=== PATIENT | male | born 1985 | race Hispanic/Latino ===

== ENCOUNTER → 2018-03-29 | Day surgery (SDC) | payer OTHER ==
[2018-03-28 09:43] LABS: ANION GAP 19.2 mmol/L (8-16); BLOOD UREA NITROGEN 13 mg/dL (7-26); BUN/CREATININE RATIO 16 (6-25); CALCIUM 9.5 mg/dL (8.4-10.2); CARBON DIOXIDE 25 mmol/L (22-29); CHLORIDE 101 mmol/L (98-107); CREATININE, SERUM 0.83 mg/dL (0.72-1.25); EST GLOMERULAR FILTRATION RATE > 60 ML/MIN (60-); GLUCOSE 148 mg/dL (74-118); POTASSIUM 4.2 mmol/L (3.5-5.1); SODIUM 141 mmol/L (136-145)
[~2018-03-29] MED LIST: AMLODIPINE BES2.5 MG PO; ATORVASTATIN CA10 MG PO; BACITRACIN 50,000 UNIT VIAL ONE; DEXAMETHASONE SOD PHOS INJ 4 MG/ML VIAL ONE; FENTANYL CITRATE/PF 100MCG/2 ML INJ ONE; KETOROLAC TROMETHAMINE 30 MG/ML VIAL ONE; LIDOCAINE 2% /EPINEPHRINE 20 ML SDV INJ ONE; LIDOCAINE HCL 2% LOCAL INJ 5 ML SDV VIAL INJ ONE; LOSARTAN POTASS50 MG PO; MIDAZOLAM HCL 2 MG/2 ML VIAL ONE; ONDANSETRON HCL INJ 2 MG/ML VIAL ONE; PAROXETINE HCL20 MG PO; PROPOFOL IV EMULSION 10 MG/ML 20 ML VIAL ONE; ROPIVACAINE 0.5% 5 MG/ML 30 ML SDV ONE; SEVOFLURANE INHAL SOLN 250 ML PEN BTL ONE
[2018-03-29] MEDS: CLINDAMYCIN PHOS 900MG/ 50ML 50 ML IV ONE (09:11)
[2018-03-29] MEDS: LABETALOL HCL 20 ML ONE (09:11)
[2018-03-29] MEDS: FENTANYL CITRATE/PF 100MCG/2 ML INJ ONE (11:24)
[2018-03-29 12:30] VITALS: BP 143/95
--- NOTE | 2018-03-29 16:12 | Operative Report ---
DATE OF PROCEDURE: March 29, 2018 GAS STATION CLERK: Dane Quintanilla PA-C The patient was brought to the operating room for induction of anesthesia. Throughout this case, my PA's assistance was necessary for retraction of soft tissue and positioning of the extremity. This allows for efficient and technically successful execution of the operation and is considered medically necessary. PREOPERATIVE DIAGNOSIS: Left knee anterior cruciate ligament tear. POSTOPERATIVE DIAGNOSIS: Left knee anterior cruciate ligament tear. PROCEDURES: 1. Left knee arthroscopy. 2. Anterior cruciate ligament reconstruction. INDICATIONS: The patient is a 32-year-old gentleman who is about 2 months status post a hyperextension injury to his left knee. Clinic exam and MRI findings are consistent with an anterior cruciate ligament tear. The findings and options have been discussed with the patient. He would like to proceed with surgical reconstruction. The risks and benefits were discussed. He stated he understood and wished to proceed. DESCRIPTION OF PROCEDURE: The patient was brought to the operating room and placed under general anesthetic. He received prophylactic antibiotics and a regional block in the holding area. His left lower extremity was examined under anesthesia. He had an approximate 2+ Sal with a firm stop compared to the right side. He had a mildly positive pivot shift. The left leg was prepped and draped in a sterile manner. Standard arthroscopy portals were established. The knee was insufflated with sterile saline and systematically inspected. The suprapatellar pouch, patellofemoral groove, medial and lateral compartments were all completely normal. There was indeed a remnant of the anterior cruciate ligament. This was lax when probed. It appeared to be detached from the femoral insertion. We elected to proceed with an anterior cruciate ligament reconstruction. An anterior tibialis allograft was prepared on the back table. This was 10 mm in diameter. The remnant of the anterior cruciate ligament was debrided with a combination of biting forceps and a mechanical shaver. Notchplasty was performed. An extraarticular alignment guide was used to place a guide pin into the footprint of the previous ACL. This was over-reamed with a 10 mm reamer. A 5 mm [id number] guide was used to place a femoral guide pin at approximately the 2 o'clock position. This was brought out the anterior soft tissue. This was over-reamed with a 10 mm acorn reamer. The 4.5 mm EndoButton drill was placed. The length of the EndoButton tunnel was 46 mm. We elected to use a 20 mm EndoButton. This was attached to the graft. The graft was passed, and the EndoButton was deployed over the anterior femoral cortex. The knee was cycled a number of times. A bioabsorbable 10 x 25 mm screw was placed into the tibial tunnel. Nice secure fixation was obtained. The knee was examined. The Sal test was negative. The graft was probed under arthroscopic visualization. It was under appropriate tension. The arthroscopic instruments were removed. The incisions were all closed with nylon stitches. A sterile bandage and a [place] brace were applied. The patient was extubated and transported to the recovery room in stable condition. There was no blood loss, and all needle and sponge counts were correct. Job#: [id number]
== END | disposition home or self-care (01) ==
LOC: OR 07:20
PROVIDERS: ATTEND Specialist
DX: S83.512A Sprain of anterior cruciate ligament of left knee, initial encounter (principal); M54.9 Dorsalgia, unspecified; I10 Essential (primary) hypertension; E78.5 Hyperlipidemia, unspecified; J45.909 Unspecified asthma, uncomplicated; K21.9 Gastro-esophageal reflux disease without esophagitis; F41.9 Anxiety disorder, unspecified; W22.09XA Striking against other stationary object, initial encounter; Y93.89 Activity, other specified; Y92.89 Other specified places as the place of occurrence of the external cause; Y99.0 Civilian activity done for income or pay; Z01.810 Encounter for preprocedural cardiovascular examination; Z01.812 Encounter for preprocedural laboratory examination; Z88.1 Allergy status to other antibiotic agents; Z88.0 Allergy status to penicillin; Z88.8 Allergy status to other drugs, medicaments and biological substances; Z68.41 Body mass index [BMI] 40.0-44.9, adult; Z90.5 Acquired absence of kidney
CPT/HCPCS: 36415; 80048; 82948; 93005; C1713; J1100; J1885; J2001; J2250; J2405; J2795

== ENCOUNTER 2018-04-26 11:00 | Outpatient (RCR) | payer OTHER ==
[~2018-04-26 11:00] MED LIST changes: -BACITRACIN 50,000 UNIT VIAL ONE; -DEXAMETHASONE SOD PHOS INJ 4 MG/ML VIAL ONE; -FENTANYL CITRATE/PF 100MCG/2 ML INJ ONE; -KETOROLAC TROMETHAMINE 30 MG/ML VIAL ONE; -LIDOCAINE 2% /EPINEPHRINE 20 ML SDV INJ ONE; -LIDOCAINE HCL 2% LOCAL INJ 5 ML SDV VIAL INJ ONE; -MIDAZOLAM HCL 2 MG/2 ML VIAL ONE; -ONDANSETRON HCL INJ 2 MG/ML VIAL ONE; -PROPOFOL IV EMULSION 10 MG/ML 20 ML VIAL ONE; -ROPIVACAINE 0.5% 5 MG/ML 30 ML SDV ONE; -SEVOFLURANE INHAL SOLN 250 ML PEN BTL ONE
== END 2018-04-27 ==
LOC: PT 11:00
PROVIDERS: ATTEND Specialist
DX: S83.512A Sprain of anterior cruciate ligament of left knee, initial encounter (principal); Z47.89 Encounter for other orthopedic aftercare; M25.562 Pain in left knee; M25.662 Stiffness of left knee, not elsewhere classified; R26.2 Difficulty in walking, not elsewhere classified; M62.81 Muscle weakness (generalized)
CPT/HCPCS: 97010; 97110; 97162; G8978; G8979

== ENCOUNTER 2018-05-23 08:00 | Outpatient (RCR) | payer OTHER | END 2018-05-27 | LOC: PT 08:00 | PROVIDERS: ATTEND Specialist | DX: Z47.89 Encounter for other orthopedic aftercare (principal); M23.622 Other spontaneous disruption of posterior cruciate ligament of left knee; M25.562 Pain in left knee; M25.662 Stiffness of left knee, not elsewhere classified; R26.2 Difficulty in walking, not elsewhere classified; M62.81 Muscle weakness (generalized) | CPT/HCPCS: 97010 ×2; 97110 ×8; 97112 ×3; G0283; G8978; G8979 ==

== ENCOUNTER → 2018-06-27 | Outpatient (RCR) | payer OTHER | LOC: PT 05-30 08:04 | PROVIDERS: ATTEND Family Medicine | DX: Z47.89 Encounter for other orthopedic aftercare (principal); M23.612 Other spontaneous disruption of anterior cruciate ligament of left knee; M23.622 Other spontaneous disruption of posterior cruciate ligament of left knee | CPT/HCPCS: 97110 ×10; 97112 ×2; 97162; G0283; G8978; G8979 ==

== ENCOUNTER 2018-07-15 10:00 | Outpatient (RCR) | payer OTHER | END 2018-07-28 | LOC: PT 10:00 | PROVIDERS: ATTEND Specialist | DX: Z47.89 Encounter for other orthopedic aftercare (principal); M23.612 Other spontaneous disruption of anterior cruciate ligament of left knee | CPT/HCPCS: 97110 ×8; 97112; 97140 ×2; G8978; G8979 ==

== ENCOUNTER → 2018-07-25 | Outpatient (CLI) | payer OTHER ==
--- NOTE | 2018-07-25 08:54 | Diagnostic Imaging Report ---
MRI of the left ankle without contrast. History: Ankle pain. Sprain. Fall. Decreased range of motion. Ligament tear. Technique: Utilizing a high-field 1.5T magnet, the following sequences were acquired: PD FS in all 3 planes with additional axial PD. Comparison: None. Findings: Achilles tendon and plantar fascia: The Achilles tendon and plantar fascia are normal. Cartilage and bone: Negative for osteochondral lesion of the tibiotalar and subtalar joints. Negative for fracture, osteonecrosis, or stress related edema. Medial ankle: The deltoid ligament complex is intact. The medial flexor tendons are normal. There is a physiologic amount of fluid within the tendon sheath of FHL. Lateral ankle: There is a mild sprain of the anterior talofibular and calcaneofibular ligaments. The majority of the fibers are intact. The posterior talofibular ligaments are intact. The syndesmotic ligaments are intact. The peroneal tendons are normal. Anterior ankle: The anterior extensor tendons are normal. Other findings: Negative for joint effusion. Impression: Mild sprain of the anterior talofibular and calcaneofibular ligaments. The majority of the fibers are intact. The posterior talofibular ligaments are intact Signed by: Dr. Ian Millard M.D. on 07/25/2018 8:51 AM
== END ==
LOC: MRI 07:43
PROVIDERS: ATTEND Specialist
DX: S93.432A Sprain of tibiofibular ligament of left ankle, initial encounter (principal); S93.422A Sprain of deltoid ligament of left ankle, initial encounter

== ENCOUNTER 2018-08-23 09:54 | Outpatient (RCR) | payer OTHER | END 2018-08-25 | LOC: PT 09:54 | PROVIDERS: ATTEND Specialist | DX: M23.622 Other spontaneous disruption of posterior cruciate ligament of left knee (principal); M23.612 Other spontaneous disruption of anterior cruciate ligament of left knee; M23.8X2 Other internal derangements of left knee; S96.89 Other specified injury of other specified muscles and tendons at ankle and foot level; S93.432A Sprain of tibiofibular ligament of left ankle, initial encounter; S93.422A Sprain of deltoid ligament of left ankle, initial encounter; Z47.89 Encounter for other orthopedic aftercare ==

== ENCOUNTER 2018-08-26 09:43 | Outpatient (RCR) | payer OTHER | END 2018-09-25 | LOC: PT 09:43 | PROVIDERS: ATTEND Specialist | DX: M23.612 Other spontaneous disruption of anterior cruciate ligament of left knee (principal); M23.622 Other spontaneous disruption of posterior cruciate ligament of left knee; Z47.89 Encounter for other orthopedic aftercare ==

== ENCOUNTER → 2020-10-23 | Outpatient (CLI) | payer OTHER | LOC: MRI 12:02 | PROVIDERS: ATTEND Physician Assistant | DX: M25.562 Pain in left knee (principal); G89.29 Other chronic pain ==